=== PATIENT | male | born 1955 | race Caucasian/White ===

== ENCOUNTER 2017-09-12 08:15 | Day surgery (SDC) | payer OTHER ==
[2017-09-12] MEDS ORDERED: Ketamine HCl 50 MG/ML IV ONE (08:16)
[2017-09-12] MEDS ORDERED: DIPRIVAN 200 MG/20 ML IV ONE (08:16)
[2017-09-12] MEDS ORDERED: Lactated Ringers 1,000 ML IV ONE ×2 (08:25→08:38)
[2017-09-12] MEDS ORDERED: Lactated Ringers 1,000 ML IV SCH (08:30)
--- NOTE | 2017-09-12 08:37 | HP ---
DATE OF SURGERY: 09/12/2017 HISTORY OF PRESENT ILLNESS: The patient is a 62 year-old has a lot of food stuck in upper esophagus, some choking that has been going on for a while worse recently. No prior endoscopy. PAST MEDICAL HISTORY: Diabetes, hypercholesterolemia, hypertension, chronic obstructive pulmonary disease, reflux. PAST SURGICAL HISTORY: Open heart surgery in the past. Abdominal aortic aneurysm in the past. Esophageal dilatation in the past without endoscopy. MEDICATIONS: Metoprolol, pravastatin, triamterene hydrochlorothiazide, [place] Aspirin, clopidogrel, Prevacid, ProAir HFA as needed. ALLERGIES: NKDA. FAMILY HISTORY: Negative for esophageal or stomach cancer. Heart disease, diabetes, hypertension. SOCIAL HISTORY: He is a two pack per day smoker. He denies alcohol abuse. REVIEW OF SYSTEMS: Twelve systems reviewed per admission assessment. No chest pain or palpitations other systems negative or noncontributory as above and per preadmission questionnaire. PHYSICAL EXAMINATION: GENERAL: No acute distress. HEENT: Sclerae nonicteric. NECK: No JVD. CHEST: Equal excursion, non-labored breathing. CVS: Regular rate and rhythm. ABDOMEN: No peritoneal signs EXTREMITIES: No significant edema. NEURO: Alert, oriented, moving extremities symmetrically. No gross motor deficits noted. IMPRESSION: Dysphagia lower esophagus. I feel the patient will benefit from upper endoscopy possible biopsy, possible dilatation pending operative findings. Risks and benefits explained in detail but not limited to bleeding and infection, risk of bowel injury or perforation possibly requiring open procedure, risk of ongoing morbidity, risk of missed or nondiagnosis or incomplete exam possibly requiring other procedures or referrals, general risk of anesthesia, deep venous thrombosis, pulmonary embolism, pneumonia. He also understands the importance of stopping smoking to reduce the overall risk of ongoing esophageal problem. He understands and will proceed with EGD possible biopsy, possible dilatation under MAC anesthesia as an outpatient.
[2017-09-12 10:45] VITALS: PULSE 75
[2017-09-12 11:03] VITALS: BP 174/86; O2SAT 98
--- NOTE | 2017-09-12 15:11 | OP ---
SURGERY DATE/TIME: 09/12/2017 1004 PREOPERATIVE DIAGNOSIS: Dysphagia. POSTOPERATIVE DIAGNOSES: 1) Minimal to mild gastritis. 2) Plus/minus very slight hiatal hernia versus normal gastroesophageal junction. 3) Distal esophageal narrowing and spasm without any evidence of mass. PROCEDURES: 1) EGD with cold biopsy of the antrum for Helicobacter pylori for GERTRUDIS-test. 2) Esophageal balloon dilatation symptomatic distal esophageal narrowing and spasm (size 20 balloon dilator). SURGEON: Dr. Eliot Andrade. ANESTHESIA: MAC. ESTIMATED BLOOD LOSS: Minimal. INDICATIONS: As noted above. Risks and benefits explained in detail and not limited to and consent obtained. DESCRIPTION OF PROCEDURE AND FINDINGS: The patient is taken to the operating room. MAC anesthesia introduced. After official time out and no disagreement with planned procedure, a bite block positioned. Video gastroscope easily passed down the proximal esophagus. There was a distal esophageal narrowing and spasm this is where he is having his symptoms. There is no obvious mass here to biopsy. No signs of any obvious Martin's or any signs of any erosive esophagitis here but definite narrowing and spasm. He is having symptoms here. It was felt that this warranted dilatation. The scope was able to be just passed through this area into the stomach, had some minimal to mild gastritis. Cold biopsy taken of the antrum to evaluate for Helicobacter pylori. The scope is able to be passed through the patent pylorus to junction of the second and third portion of the duodenum. The duodenum and duodenal bulb grossly unremarkable. The scope is withdrawn. Biopsy site had good hemostasis on retroflex. The gastroesophageal junction was fairly snug against the scope. Whether it was a slight weakness or very slight hiatal hernia versus normal variation there was no evidence of any large hiatal hernia and no signs of any obvious masses or other mucosal lesions other than the minimal to mild gastritis of the stomach. The scope pulled back. Gastroesophageal junction noted about 44 cm. Again, had symptomatic narrowing and spasm here without any evidence of any mass or esophagitis to biopsy. Because he is having symptoms here, I felt he warranted dilatation. The remainder of the esophagus grossly unremarkable. No evidence of any obvious other mucosal lesions. The scope passed back down the stomach. A 20 balloon dilator and catheter carefully inserted under direct vision of the stomach. Pulled back to the narrowed area of distal esophagus and it was then gradually inflated the first two stages 40 to 45 seconds each size 18 and final size 20 balloon dilator the balloon is inflated and held for 2 minutes. It is then decompressed and the balloon catheter withdrawn. The scope much more easily passed down through this area. It was then gradually withdrawn. There were no signs of any full thickness issues or injury secondary to dilatation. The scope is withdrawn. The patient tolerated the procedure well. Findings discussed with the family out in the waiting area.
== END 2017-09-12 11:16 | disposition home or self-care (01) ==
LOC: SDC 08:15
PROVIDERS: ATTEND Surgery
DX: K29.70 Gastritis, unspecified, without bleeding (principal); K44.9 Diaphragmatic hernia without obstruction or gangrene; K22.2 Esophageal obstruction; K22.4 Dyskinesia of esophagus; E11.9 Type 2 diabetes mellitus without complications; E78.00 Pure hypercholesterolemia, unspecified; I10 Essential (primary) hypertension; J44.9 Chronic obstructive pulmonary disease, unspecified; K21.9 Gastro-esophageal reflux disease without esophagitis; Z79.899 Other long term (current) drug therapy
CPT/HCPCS: 87081; C1726; J2704